=== PATIENT | female | born 1970 | race African-American/Black ===

== ENCOUNTER 2016-12-03 10:35 | Emergency (ER) | payer MEDICAID ==
--- NOTE | 2016-12-03 11:00 | ER Document Report ---
ED Medical Screen (RME) - General Stated Complaint: BODY ACHES Time seen by provider: 10:57 Mode of Arrival: Ambulatory Information source: Patient Notes: 46-year-old female presents to ED for body aches cough congestion sore throat and states she was warm at home. States she's had take well before coming to the emergency room about 8:00 this morning I have greeted and performed a rapid initial assessment of this patient. A comprehensive ED assessment and evaluation of the patient, analysis of test results and completion of medical decision making process will be conducted by an additional ED providers. TRAVEL OUTSIDE OF THE [place] IN LAST 30 DAYS: No - Related Data Allergies/Adverse Reactions: No Known Allergies Allergy (Unverified 06/14/16 01:56)
[2016-12-03] MEDS ORDERED: ONDANSETRON 4 MG TAB.RAPDIS PO ONE (12:42)
[2016-12-03] MEDS ORDERED: OXYCODONE-ACETAMINOPHEN 5-325 MG TABLET PO ONE (12:42)
[2016-12-03] MEDS ORDERED: PENICILLIN G BENZATHINE 1.2 MILLION UNIT/2 ML DISP.SYRIN IM ONE (12:43)
--- NOTE | 2016-12-03 12:53 | ER Document Report ---
HPI - HPI Patient complains to provider of: upper respiratory symptoms Onset: Other - 4 days Onset/Duration: Gradual Quality of pain: Achy Pain Level: 2 Context: Patient presents complaining of sore throat, nausea and cough for the past 4 days. Patient denies any vomiting or diarrhea. Patient does report recent sick contacts. Associated Symptoms: Nonproductive cough, Earache, Sore throat. denies: Fever Exacerbated by: Denies Relieved by: Denies Similar symptoms previously: Yes Recently seen / treated by doctor: No - ROS ROS below otherwise negative: Yes Systems Reviewed and Negative: Yes All other systems reviewed and negative - CONSTITUTIONAL Constitutional: REPORTS: Chills - EENT EENT: REPORTS: Sore Throat, Ear Pain, Congestion - RESPIRATORY Respiratory: REPORTS: Coughing. DENIES: Trouble Breathing - GASTROINTESTINAL Gastrointestinal: REPORTS: Nausea. DENIES: Patient vomiting, Diarrhea - MUSCULOSKELETAL Musculoskeletal: DENIES: Back Pain, Neck Pain - DERM Skin Color: Normal Skin Problems: None Past Medical History - General Information source: Patient - Social History Smoking Status: Current Every Day Smoker Chew tobacco use (# tins/day): No Frequency of alcohol use: None Drug Abuse: None Family History: Reviewed & Not Pertinent Patient has suicidal ideation: No Patient has homicidal ideation: No - Past Medical History Cardiac Medical History: Reports: Hx Hypertension Renal/ Medical History: Denies: Hx Peritoneal Dialysis Past Surgical History: Reports: Hx Cardiac Surgery - Triple bypass Vertical Provider Document - CONSTITUTIONAL Agree With Documented VS: Yes Exam Limitations: No Limitations General Appearance: WD/WN, No Apparent Distress - INFECTION CONTROL TRAVEL OUTSIDE OF THE [place] IN LAST 30 DAYS: No - HEENT HEENT: Atraumatic, Normocephalic, Pharyngeal Tenderness, Pharyngeal Erythema. negative: Pharyngeal Exudate, Tympanic Membrane Red, Tympanic Membrane Bulging - NECK Neck: Lymphadenopathy-Left, Lymphadenopathy-Right - RESPIRATORY Respiratory: No Respiratory Distress, Chest Non-Tender, Other - Occasional dry cough. negative: Rales, Rhonchi, Wheezing O2 Sat by Pulse Oximetry: 100 - CARDIOVASCULAR Cardiovascular: Regular Rate, Regular Rhythm, No Murmur - GI/ABDOMEN Gastrointestinal: Abdomen Soft, Abdomen Non-Tender - BACK Back: Normal Inspection. negative: CVA Tenderness-Right, CVA Tenderness-Left - MUSCULOSKELETAL/EXTREMETIES Musculoskeletal/Extremeties: MAEW - NEURO Level of Consciousness: Awake, Alert, Appropriate Motor/Sensory: No Motor Deficit - DERM Integumentary: Warm, Dry, No Rash Course - Vital Signs Vital signs: Temp Pulse Resp BP Pulse Ox 99.7 F 79 18 122/88 H 100 12/03/16 10:59 12/03/16 10:59 12/03/16 10:59 12/03/16 10:59 12/03/16 10:59 - Laboratory Laboratory results interpreted by me: 12/03/16 12:51 Labs- Entire Visit 12/03/16 12/03/16 11:05 11:08 Influenza A (Rapid) NEGATIVE Influenza B (Rapid) NEGATIVE Group A Strep Rapid POSITIVE - Diagnostic Test Radiology reviewed: Reports reviewed Discharge - Discharge Clinical Impression: Strep pharyngitis, Nausea Condition: Stable Disposition: HOME, SELF-CARE Instructions: Strep Throat ([facility]), Nausea or Vomiting, Nonspecific ([facility]), Antibiotic Shot ([facility]), Antinausea Medication ([facility]), Oral Narcotic Medication ( [facility]) Additional Instructions: Return immediately for any new or worsening symptoms Followup with your primary care provider, call tomorrow to make a followup appointment Prescriptions: Ondansetron HCl [Zofran 4 mg Tablet] 1 - 2 tab PO Q6 PRN #15 tablet PRN Reason: Oxycodone HCl/Acetaminophen [Percocet 5-325 mg Tablet] 1 tab PO ASDIR PRN #10 tablet PRN Reason: Forms: Return to Work [facility] - Follow up in 3-5 days
[2016-12-03 13:52] VITALS: BP 126/90
== END 2016-12-03 13:45 | disposition home or self-care (01) ==
LOC: ER 10:35
DX: J02.0 Streptococcal pharyngitis (principal); R11.0 Nausea; R05 Cough; H92.09 Otalgia, unspecified ear; F17.200 Nicotine dependence, unspecified, uncomplicated
CPT/HCPCS: 99283; 96372; 87880; 87804; 71020; S0119; J0561

== ENCOUNTER 2017-01-30 09:17 | Emergency (ER) | payer SELFPAY ==
[2017-01-30] MEDS ORDERED: IBUPROFEN 600 MG TABLET ONE (11:31)
== END 2017-01-30 11:45 | disposition home or self-care (01) ==
LOC: ER 09:17
DX: S46.911A Strain of unspecified muscle, fascia and tendon at shoulder and upper arm level, right arm, initial encounter (principal); X50.3XXA Overexertion from repetitive movements, initial encounter; Y92.511 Restaurant or cafe as the place of occurrence of the external cause; Y99.0 Civilian activity done for income or pay; I25.2 Old myocardial infarction; Z95.1 Presence of aortocoronary bypass graft
CPT/HCPCS: 99283

== ENCOUNTER 2017-03-04 07:37 | Emergency (ER) | payer SELFPAY ==
[2017-03-04 07:43] VITALS: BP 136/82
--- NOTE | 2017-03-04 10:05 | RADIOLOGY REPORT (SQ) ---
EXAM DESCRIPTION: KNEE RIGHT 4 VIEWS COMPLETED DATE/TIME: 03/04/2017 9:57 am REASON FOR STUDY: injury COMPARISON: None. NUMBER OF VIEWS: Four views. TECHNIQUE: AP, lateral, and both oblique radiographic images acquired of the right knee. LIMITATIONS: None. FINDINGS: MINERALIZATION: Normal. BONES: No acute fracture or dislocation. No worrisome bone lesions. JOINT: No effusion. SOFT TISSUES: No soft tissue swelling. No radio-opaque foreign body. OTHER: No other significant finding. IMPRESSION: NEGATIVE STUDY OF THE RIGHT KNEE. NO RADIOGRAPHIC EVIDENCE OF ACUTE INJURY. TECHNICAL DOCUMENTATION: JOB ID: [id number] [employer]- All Rights Reserved
--- NOTE | 2017-03-04 10:24 | ER Document Report ---
ED General - General Chief Complaint: Knee Injury Stated Complaint: INJURY/KNEE PAIN Time Seen by Provider: 03/04/17 08:37 Mode of Arrival: Ambulatory Information source: Patient Notes: 46-year-old female presents after having a contusion to the right hui 2 days prior. Patient denies any other injuries patient was able to ambulate with no difficulty but swelling worsened today. TRAVEL OUTSIDE OF THE [place] IN LAST 30 DAYS: No - HPI Onset: Other Onset/Duration: Persistent Quality of pain: Achy Severity: Mild Pain Level: 1 Associated symptoms: Other Exacerbated by: Walking Relieved by: Denies Similar symptoms previously: No Recently seen / treated by doctor: No - Related Data Allergies/Adverse Reactions: No Known Allergies Allergy (Verified 03/04/17 07:41) Past Medical History - Social History Smoking Status: Current Every Day Smoker Cigarette use (# per day): Yes Chew tobacco use (# tins/day): No Smoking Education Provided: No Frequency of alcohol use: Occasional Drug Abuse: None Family History: Reviewed & Not Pertinent Patient has suicidal ideation: No Patient has homicidal ideation: No - Past Medical History Cardiac Medical History: Reports: Hx Heart Attack, Hx Hypertension Renal/ Medical History: Denies: Hx Peritoneal Dialysis Past Surgical History: Reports: Hx Cardiac Surgery - Triple bypass - Immunizations Hx Diphtheria, Pertussis, Tetanus Vaccination: Yes Review of Systems - Review of Systems Notes: REVIEW OF SYSTEMS: CONSTITUTIONAL : Denies fever, chills, or sweats. Denies recent illness. EENT: Denies eye, ear, throat, or mouth pain or symptoms. Denies nasal or sinus congestion or discharge. Denies throat, tongue, or mouth swelling or difficulty swallowing. CARDIOVASCULAR: Denies chest pain. Denies palpitations or racing or irregular heart beat. Denies ankle edema. RESPIRATORY: Denies cough, cold, or chest congestion. Denies shortness of breath, difficulty breathing, or wheezing. GASTROINTESTINAL: Denies abdominal pain or distention. Denies nausea, vomiting , or diarrhea. Denies blood in vomitus, stools, or per rectum. Denies black, tarry stools. Denies constipation. GENITOURINARY: Denies difficulty urinating, painful urination, burning, frequency, blood in urine, or discharge. FEMALE GENITOURINARY: Denies vaginal bleeding, heavy or abnormal periods, irregular periods. Denies vaginal discharge or odor. MUSCULOSKELETAL: Right hui pain SKIN: abrasion to right hui HEMATOLOGIC : Denies easy bruising or bleeding. LYMPHATIC: Denies swollen, enlarged glands. NEUROLOGICAL: Denies confusion or altered mental status. Denies passing out or loss of consciousness. Denies dizziness or lightheadedness. Denies headache. Denies weakness or paralysis or loss of use of either side. Denies problems with gait or speech. Denies sensory loss, numbness, or tingling. Denies seizures. PSYCHIATRIC: Denies anxiety or stress. Denies depression, suicidal ideation, or homicidal ideation. ALL OTHER SYSTEMS REVIEWED AND NEGATIVE. PHYSICAL EXAMINATION: GENERAL: Well-appearing, well-nourished and in no acute distress. HEAD: Atraumatic, normocephalic. EYES: Pupils equal round and reactive to light, extraocular movements intact, conjunctiva are normal. ENT: Nares patent, oropharynx clear without exudates. Moist mucous membranes. NECK: Normal range of motion, supple without lymphadenopathy LUNGS: Breath sounds clear to auscultation bilaterally and equal. No wheezes rales or rhonchi. HEART: Regular rate and rhythm without murmurs ABDOMEN: Soft, nontender, nondistended abdomen. No guarding, no rebound. No masses appreciated. Female : deferred Musculoskeletal: Normal range of motion, no pitting or edema. No cyanosis. Facial abrasion to the right hui no secondary signs of infection mild swelling NEUROLOGICAL: Cranial nerves grossly intact. Normal speech, normal gait. Normal sensory, motor exams PSYCH: Normal mood, normal affect. SKIN: Warm, Dry, normal turgor, no rashes or lesions noted. Dictation was performed using [employer] voice recognition software Physical Exam - Vital signs Vitals: Temp Pulse Resp BP Pulse Ox 97.9 F 70 20 136/82 H 99 03/04/17 07:41 03/04/17 07:41 03/04/17 07:41 03/04/17 07:41 03/04/17 07:41 Course - Re-evaluation Re-evalutation: 03/04/17 10:27 Has a contusion with small abrasion no secondary to infection is noted. Patient otherwise will looks well is in no distress. Patient will be given anti -inflammatories and has been given very strict return precautions regarding the wound After performing a Medical Screening Examination, I estimate there is LOW risk for OPEN FRACTURE, COMPARTMENT SYNDROME, TENDON RUPTURE, ACUTE NEUROVASCULAR INJURY, or RETAINED FOREIGN BODY, thus I consider the discharge disposition reasonable. Also, there is no evidence or peritonitis, sepsis, or toxicity. I have reevaluated this patient multiple times and no significant life threatening changes are noted. The patient and I have discussed the diagnosis and risks, and we agree with discharging home with close follow-up with the understanding that symptoms and presentations can change. We also discussed returning to the Emergency Department immediately if new or worsening symptoms occur. We have discussed the symptoms which are most concerning (e.g., changing or worsening pain, fever, numbness, weakness, cool or painful digits) that necessitate immediate return. - Vital Signs Vital signs: Temp Pulse Resp BP Pulse Ox 97.9 F 70 20 136/82 H 99 03/04/17 07:41 03/04/17 07:41 03/04/17 07:41 03/04/17 07:41 03/04/17 07:41 - Diagnostic Test Radiology reviewed: Image reviewed, Reports reviewed Discharge - Discharge Clinical Impression: Right hui contusion Leg pain Qualifiers: Laterality: right Qualified Code(s): M79.604 - Pain in right leg Condition: Stable Disposition: HOME, SELF-CARE Instructions: [facility] ([facility]) Prescriptions: Naproxen 500 mg PO BID #14 tablet Forms: Return to Work
[2017-03-04] MEDS ORDERED: NAPROXEN 250 MG TABLET PO ONE (10:26)
== END 2017-03-04 11:17 | disposition home or self-care (01) ==
LOC: ER 07:37
DX: S89.91XA Unspecified injury of right lower leg, initial encounter (principal); S80.11XA Contusion of right lower leg, initial encounter; M79.604 Pain in right leg; F17.210 Nicotine dependence, cigarettes, uncomplicated; X58.XXXA Exposure to other specified factors, initial encounter
CPT/HCPCS: 99283

== ENCOUNTER 2017-04-05 16:45 | Emergency (ER) | payer SELFPAY ==
--- NOTE | 2017-04-05 17:21 | ER Document Report ---
ED Medical Screen (RME) - General Mode of Arrival: Ambulatory Information source: Patient TRAVEL OUTSIDE OF THE [place] IN LAST 30 DAYS: No <CARSON BELL - Last Filed: 04/05/17 17:10> <TATIANA STORM - Last Filed: 04/05/17 21:22> - General Chief Complaint: Chest Pain Stated Complaint: CHEST PAIN Time Seen by Provider: 04/05/17 17:09 Notes: Patient is a 46 year old female presenting to the emergency department presenting to the emergency department for chest pain. Patient states her chest pain was onset this morning when she woke up. Patient then had some pain in her left arm. Patient took some ASA and ibuprofen with no relief. Patient has a history of triple bypass in 2012. Patient's last stress test was last year. Patient has no known allergies. Patient is a smoker. Patient does not have a PCP. Patient had her heart surgery at [facility]. (CARSON BELL) - Related Data Allergies/Adverse Reactions: No Known Allergies Allergy (Verified 04/05/17 16:59) Past Medical History - Social History Cigarette use (# per day): Yes Chew tobacco use (# tins/day): No Frequency of alcohol use: None Drug Abuse: None - Past Medical History Cardiac Medical History: Reports: Hx Heart Attack, Hx Hypertension Renal/ Medical History: Denies: Hx Peritoneal Dialysis Past Surgical History: Reports: Hx Cardiac Surgery - Triple bypass - Immunizations Hx Diphtheria, Pertussis, Tetanus Vaccination: Yes <CARSON BELL - Last Filed: 04/05/17 17:10> Physical Exam <CARSON BELL - Last Filed: 04/05/17 17:10> <TATIANA STORM - Last Filed: 04/05/17 21:22> - Vital signs Vitals: Temp Pulse Resp BP Pulse Ox 97.9 F 61 18 131/87 H 99 04/05/17 17:00 04/05/17 17:00 04/05/17 17:00 04/05/17 17:00 04/05/17 17:00 - Notes Notes: GENERAL: Alert, interacts well, mild distress. LUNGS: Clear to auscultation bilaterally, no wheezes, rhonchi, or rales. No respiratory distress. HEART: Regular rate and rhythm. No gallops, murmurs or rubs. (CARSON BELL) Course - Laboratory Result Diagrams: 04/05/17 17:40 04/05/17 17:40 <TATIANA STORM - Last Filed: 04/05/17 21:22> - Vital Signs Vital signs: Temp Pulse Resp BP Pulse Ox 97.9 F 61 17 103/86 H 100 04/05/17 17:00 04/05/17 17:00 04/05/17 20:46 04/05/17 20:46 04/05/17 20:46 - Laboratory Laboratory results interpreted by me: 04/05/17 04/05/17 17:40 17:40 RDW 15.2 H Glucose 73 L Direct Bilirubin 0.5 H Creatine Kinase 165 H Scribe Documentation - Scribe Written by Scribe:: Alice Triana 04/05/17 17:21 acting as scribe for :: Venkata <CARSON BELL - Last Filed: 04/05/17 17:10>
[2017-04-05] MEDS ORDERED: ASPIRIN 81 MG TABLET, CHEWABLE PO ONE (17:26)
[2017-04-05] MEDS: NITROGLYCERIN 0.4 MG/TAB 25 TAB/BOTTLE SL PRN ×2 (17:35→17:47)
--- NOTE | 2017-04-05 18:13 | RADIOLOGY REPORT (SQ) ---
EXAM DESCRIPTION: CHEST SINGLE VIEW COMPLETED DATE/TIME: 04/05/2017 5:59 pm REASON FOR STUDY: chest pain COMPARISON: 12/03/2016 EXAM PARAMETERS: NUMBER OF VIEWS: One view. TECHNIQUE: Single frontal radiographic view of the chest acquired. RADIATION DOSE: NA LIMITATIONS: None. FINDINGS: LUNGS AND PLEURA: No opacities, masses or pneumothorax. No pleural effusion. MEDIASTINUM AND HILAR STRUCTURES: No masses. Contour normal. HEART AND VASCULAR STRUCTURES: Heart normal in size. Normal vasculature. BONES: No acute findings. HARDWARE: Stable. OTHER: No other significant finding. IMPRESSION: NO ACUTE RADIOGRAPHIC FINDING IN THE CHEST. NO SIGNIFICANT CHANGE FROM PRIOR STUDY TECHNICAL DOCUMENTATION: JOB ID: [id number]
[2017-04-05 18:28] LABS: ALANINE AMINOTRANSFERASE 23 U/L (9-52); ALBUMIN 4.2 g/dL (3.5-5.0); ALKALINE PHOSPHATASE 95 U/L (38-126); ANION GAP 11 (5-19); ASPARTATE AMINO TRANSFERASE 35 U/L (14-36); BILIRUBIN,DIRECT 0.5 mg/dL (0.0-0.4); BILIRUBIN,TOTAL 0.8 mg/dL (0.2-1.3); BLOOD UREA NITROGEN 12 mg/dL (7-20); CALCIUM 9.4 mg/dL (8.4-10.2); CARBON DIOXIDE 26 mmol/L (22-30); CHLORIDE 106 mmol/L (98-107); CREATINE KINASE 165 U/L (30-135); CREATININE RESULT 0.82 mg/dL (0.52-1.25); GLUCOSE 73 mg/dL (75-110); POTASSIUM 3.9 mmol/L (3.6-5.0); SODIUM 143.2 mmol/L (137-145); TOTAL PROTEIN 8.2 g/dL (6.3-8.2)
[2017-04-05 18:32] LABS: ABSOLUTE BASOPHILS # (AUTO) 0.1 10^3/uL (0.0-0.2); ABSOLUTE EOSINOPHILS # (AUTO) 0.2 10^3/uL (0.0-0.6); ABSOLUTE LYMPHOCYTES (AUTO) 3.2 10^3/uL (0.5-4.7); ABSOLUTE MONOCYTES (AUTO) 0.7 10^3/uL (0.1-1.4); BASOPHILS % (AUTO) 0.9 % (0-2); EOSINOPHILS % (AUTO) 1.6 % (0-6); HEMATOCRIT 41.6 % (36.0-47.0); HEMOGLOBIN 13.8 g/dL (12.0-15.5); HGB HCT DIFFERENCE -0.2; LYMPHOCYTES % (AUTO) 31.7 % (13-45); MEAN CORPUSCULAR HGB CONC 33.2 g/dL (32.0-36.0); MEAN CORPUSCULAR VOLUME 90 fl (80-97); MONOCYTES % (AUTO) 6.5 % (3-13); RED CELL DISTRIBUTION WIDTH 15.2 % (11.5-14.0); SEGMENTED NEUTROPHILS % (AUTO) 59.3 % (42-78); WHITE BLOOD COUNT 10.1 10^3/uL (4.0-10.5)
[2017-04-05 18:38] LABS: PROTHROMBIN TIME 12.8 SEC (11.4-15.4)
[2017-04-05 18:43] LABS: CREATINE KINASE MB 1.55 ng/mL (<4.55); TROPONIN I < 0.012 ng/mL
--- NOTE | 2017-04-05 20:40 | ER Document Report ---
ED Cardiac - General Mode of Arrival: Ambulatory Information source: Patient TRAVEL OUTSIDE OF THE [place] IN LAST 30 DAYS: No - HPI Patient complains to provider of: Chest pain Chest pain location: Other - right para-sternal Severity now: None Associated symptoms: Other - see above <OFE REYNA - Last Filed: 04/05/17 20:47> <LUPE DOWELL - Last Filed: 04/05/17 21:51> - General Chief Complaint: Chest Pain Stated Complaint: CHEST PAIN Time Seen by Provider: 04/05/17 17:09 Notes: Patient is a 46 year old female who presents to the ED with complaints of right para-sternal chest pain with onset this morning around 0630 after the patient woke up at her normal time. Patient states she took an Ibuprofen with no relief before going to work at [employer]. Patient states she also had left arm pain. Patient states the pain remained constant and unchanged in intensity. Patient had a triple bypass in 2014 and her last treadmill stress test she states was at Urgent Care last year and it was normal. Patient states she feels better after she was given Nitroglycerin while in the ED but exact time of symptoms going away is unsure. Patient states she has had no cardiac complaints since having her bypass in 2014. At this point patient only takes Aspirin and Cholesterol medication. No other concerns or complaints at this time. (OFE REYNA) - Related Data Allergies/Adverse Reactions: No Known Allergies Allergy (Verified 04/05/17 16:59) Past Medical History - General Information source: Patient - Social History Smoking Status: Current Every Day Smoker Cigarette use (# per day): Yes Chew tobacco use (# tins/day): No Frequency of alcohol use: None Drug Abuse: None Family History: Reviewed & Not Pertinent - Past Medical History Cardiac Medical History: Reports: Hx Heart Attack, Hx Hypertension Renal/ Medical History: Denies: Hx Peritoneal Dialysis Past Surgical History: Reports: Hx Cardiac Surgery - Triple bypass - Immunizations Hx Diphtheria, Pertussis, Tetanus Vaccination: Yes <OFE REYNA - Last Filed: 04/05/17 20:47> Review of Systems - Review of Systems Constitutional: No symptoms reported EENT: No symptoms reported Cardiovascular: See HPI, Chest pain Respiratory: No symptoms reported Gastrointestinal: No symptoms reported Genitourinary: No symptoms reported Female Genitourinary: No symptoms reported Musculoskeletal: See HPI, Other - left arm pain Skin: No symptoms reported Hematologic/Lymphatic: No symptoms reported Neurological/Psychological: No symptoms reported <OFE REYNA - Last Filed: 04/05/17 20:47> Physical Exam - General General appearance: Appears well, Anxious - to go home In distress: None - HEENT Head: Normocephalic Eyes: Normal Extraocular movements intact: Yes Pupils: PERRL - Respiratory Respiratory status: No respiratory distress Chest status: Tender - right anterior chest wall tender to palpation, left anterior chest wall is not tender to palpation Breath sounds: Normal Chest palpation: Tender - right anterior chest wall tender to palpation, left anterior chest wall is not tender to palpation - Cardiovascular Rhythm: Regular Heart sounds: Normal auscultation Murmur: No - Abdominal Inspection: Normal Distension: No distension Tenderness: Nontender - Back Back: Normal - Extremities General upper extremity: Tender - left trapezius muscle tender to palpation, Normal strength General lower extremity: Normal inspection, Normal strength - Neurological Neuro grossly intact: Yes Cognition: Normal Orientation: AAOx4 [place] Coma Scale Eye Opening: Spontaneous [place] Coma Scale Verbal: Oriented [place] Coma Scale Motor: Obeys Commands [place] Coma Scale Total: 15 Speech: Normal - Psychological Associated symptoms: Normal affect, Normal mood - Skin Skin Temperature: Warm Skin Moisture: Dry Skin Color: Normal <OFE REYNA - Last Filed: 04/05/17 20:47> Course - Laboratory Result Diagrams: 04/05/17 17:40 04/05/17 17:40 <OFE REYNA - Last Filed: 04/05/17 20:47> - Laboratory Result Diagrams: 04/05/17 17:40 04/05/17 17:40 - Diagnostic Test Radiology reviewed: Image reviewed, Reports reviewed - Chest x-ray is unremarkable - EKG Interpretation by [place] EKG shows normal: Sinus rhythm, [place], Intervals, ST-T Waves. abnormal: QRS Complexes - Borderline inferior Q waves Rate: Normal - 55 Rhythm: NSR P Waves: LAE When compared to previous EKG there are: Previous EKG unavailable <LUPE DOWELL - Last Filed: 04/05/17 21:51> - Re-evaluation Re-evalutation: 04/05/17 21:42 The patient reports waking up with right parasternal chest pain and left upper arm and shoulder pain about 6:30 AM. She reports this pain remained constant throughout the day and was present when she arrived the emergency room. An EKG done during the pain does not show acute changes. Initial lab work done 11 hours after the onset of this continuous pain shows a troponin to be undetectable. A repeat troponin coming 14 hours after onset of pain remains undetectable. She does have a history of three-vessel bypass in 2014, does continue to smoke. She does report having a treadmill exercise stress test last year which was normal. Examination shows right parasternal and anterior chest wall tenderness on palpation which is not present on the left side. The left shoulder and trapezius region are tender to palpate. The patient does report she received 2 sublingual nitroglycerin after the EKG was done, and at some point after that her pain resolved. Given the negative troponins after more than 10 hours of continuous pain, no EKG changes during the pain, and reproducible pain on exam, it is unlikely the pain today was cardiac in origin. She will be advised to follow-up with a primary care provider, to get a local personnel records clerk, and to return if any new or worsening symptoms. (LUPE DOWELL) - Vital Signs Vital signs: Temp Pulse Resp BP Pulse Ox 97.9 F 61 17 103/86 H 100 04/05/17 17:00 04/05/17 17:00 04/05/17 20:46 04/05/17 20:46 04/05/17 20:46 - Laboratory Laboratory results interpreted by me: 04/05/17 04/05/17 17:40 17:40 RDW 15.2 H Glucose 73 L Direct Bilirubin 0.5 H Creatine Kinase 165 H Discharge <OFE REYNA - Last Filed: 04/05/17 20:47> <LUPE DOWELL - Last Filed: 04/05/17 21:51> - Discharge Clinical Impression: Chest pain Qualifiers: Chest pain type: unspecified Qualified Code(s): R07.9 - Chest pain, unspecified Condition: Stable Disposition: HOME, SELF-CARE Additional Instructions: Chest Pain of Unclear Cause: The exact cause of your chest pain isn't clear. Fortunately, there is no evidence of a dangerous medical condition. Further testing may be required to find the source of the pain. Most often, we find that this pain is coming from the chest wall -- the muscles or rib joints in the chest. But chest pain can come from the lung and lung lining, the esophagus, the heart valves or heart lining, and even the stomach or gallbladder. Rest. Eat lightly until the pain is gone. We may prescribe medicine for pain and inflammation. You should call the physician immediately if the pain radiates to the shoulder, jaw or arms; if you start to run a fever or develop a cough; or if you develop shortness of breath, or other new or alarming symptoms. //////////////////////////////////////////////////////////////////////////////// //////////////////////////////////////////////////////////////////////////////// ////////////////// Your pain most likely seems to be coming from the chest wall and the left shoulder muscles. A cardiac cause for your discomfort cannot be completely excluded, however with negative troponins and no acute changes on EKG, at this point is unlikely the pain was due to your heart. You are encouraged to establish with a primary care provider and a local personnel records clerk for your ongoing medical care. RETURN TO THE EMERGENCY ROOM IF ANY NEW OR WORSENING SYMPTOMS. Scribe Attestation: 04/05/17 21:51 I personally performed the services described in the documentation, reviewed and edited the documentation which was dictated to the scribe in my presence, and it accurately records my words and actions. (LUPE DOWELL) Scribe Documentation - Scribe Written by Laurenibalexander:: jalen Glover, [id number]/05/[id number] acting as scribe for :: Asher <OFE REYNA - Last Filed: 04/05/17 20:47>
[2017-04-05 22:05] VITALS: BP 106/75
--- NOTE | 2017-04-07 13:38 | EKG REPORT ---
SEVERITY:- ABNORMAL ECG - SINUS RHYTHM LEFT ATRIAL ABNORMALITY BORDERLINE INFERIOR Q WAVES : Confirmed by: Donna Ugarte MD 07-Apr-2017 13:37:54
== END 2017-04-05 22:03 | disposition home or self-care (01) ==
LOC: ER 16:45
DX: R07.9 Chest pain, unspecified (principal); F17.210 Nicotine dependence, cigarettes, uncomplicated; I10 Essential (primary) hypertension; I25.2 Old myocardial infarction; Z95.1 Presence of aortocoronary bypass graft
CPT/HCPCS: 36415; 71010; 80053; 82550; 82553; 84484; 85025; 85610; 93005; 93010; 99285